=== PATIENT | male | born 1950 | race Caucasian/White ===

== ENCOUNTER 2020-08-25 11:29 | Emergency (ER) | payer MEDICARE, BC ==
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
[2020-08-25] MEDS ORDERED: Aluminum Hydroxide/Magnesium Hydroxide/Simethicone Susp 30 ML Cup PO ONE (12:59)
[2020-08-25 14:41] VITALS: BP 128/69; PULSE 76
[2020-08-25] MEDS ORDERED: HYDROmorphone 1 MG/ML Syringe IM ONE (14:46)
[2020-08-25] MEDS ORDERED: Ondansetron 4 MG Tab.DIS PO ONE (15:25)
[2020-08-25] MEDS ORDERED: Ondansetron 4 MG Tab.DIS ONE (15:27)
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
== END 2020-08-25 15:38 | disposition home or self-care (01) ==
LOC: JP.ED 11:29
DX: S22.42XA Multiple fractures of ribs, left side, initial encounter for closed fracture (principal); S00.31XA Abrasion of nose, initial encounter; W55.22XA Struck by cow, initial encounter
CPT/HCPCS: 36415; 71250; 74176; 80053; 85025; 96372; 99284; A9270; J1170

== ENCOUNTER 2020-10-05 06:30 | Day surgery (SDC) | payer MEDICARE, BC ==
[2020-10-05] MEDS ORDERED: Sodium Chloride 0.9% 1,000 ML IV SCH (07:00)
[2020-10-05] MEDS ORDERED: fentaNYL 100 MCG/2 ML SDV ONE (07:30)
[2020-10-05] MEDS ORDERED: Propofol 200 MG/20 ML SDV ONE (07:30)
[2020-10-05] MEDS ORDERED: Midazolam 1 MG/ML 2 ML SDV ONE (07:30)
[2020-10-05] MEDS ORDERED: Ondansetron 4 MG/2 ML SDV ONE (07:35)
[2020-10-05] MEDS ORDERED: Dexamethasone 4 MG/ML SDV ONE (07:35)
[2020-10-05 08:45] VITALS: BP 120/77; PULSE 62
--- NOTE | 2020-10-05 14:13 | OR ---
DATE OF PROCEDURE: 10/05/2020 SURGEON: Germán Encarnacion MD PROCEDURE PERFORMED: Colonoscopy. FINDINGS: 1. Diverticulosis. 2. Incomplete colonoscopy due to a large amount of solid stool. 3. Poor colon prep. COMPLICATIONS: None. ACTIVITY MANAGER: None. ANESTHETIC: MAC. PREOPERATIVE DIAGNOSIS: Screening colonoscopy. POSTOPERATIVE DIAGNOSIS: Screening colonoscopy. RISKS: Risks, benefits, alternatives, and limitations including, but not limited to infection, bleeding, perforation, false positives, and false negatives were explained to the patient who wished to proceed. PROCEDURE IN DETAIL: The patient was placed in the left lateral decubitus position. Digital rectal exam was performed without significant abnormality. The scope was introduced and advanced atraumatically to the appendiceal orifice. The scope was brought back, but the patient had a large amount of solid stool throughout the entire colon. The luminal surface exam was less than 60%. Suction irrigation techniques were used, but unable to improve on the percentage. The scope was brought back, and the procedure was terminated. The patient will be scheduled for a second colonoscopy due to poor colon prep. Germán Encarnacion MD /[id number]
== END 2020-10-05 09:15 | disposition home or self-care (01) ==
LOC: JP.SDS 06:30
PROVIDERS: ATTEND Surgery
DX: Z12.11 Encounter for screening for malignant neoplasm of colon (principal); K57.30 Diverticulosis of large intestine without perforation or abscess without bleeding
CPT/HCPCS: G0121; J1100; J2405; J2704; J3010; J7030; J2250

== ENCOUNTER 2020-10-15 08:22 | Day surgery (SDC) | payer MEDICARE, BC ==
[~2020-10-15 08:22] MED LIST: Midazolam 1 MG/ML 2 ML SDV ONE; Propofol 200 MG/20 ML SDV ONE; fentaNYL 100 MCG/2 ML SDV ONE
[2020-10-15] MEDS ORDERED: Sodium Chloride 0.9% 1,000 ML IV SCH (09:30)
[2020-10-15] MEDS ORDERED: Ondansetron 4 MG/2 ML SDV ONE (10:28)
[2020-10-15 11:37] VITALS: BP 110/59; PULSE 68
--- NOTE | 2020-10-18 09:05 | OR ---
DATE OF PROCEDURE: 10/15/2020 SURGEON: Germán Encarnacion MD PROCEDURE: Colonoscopy. FINDINGS: Transverse colon polyp, approximately 5 mm, completely removed using cold biopsy forceps. COMPLICATIONS: None. NAVAL SCIENCE TEACHER: None. ANESTHESIA: MAC. PREOPERATIVE DIAGNOSIS: Screening colonoscopy. POSTOPERATIVE DIAGNOSIS: Screening colonoscopy. RISKS: Risks, benefits, alternatives, and limitations including, but not limited to infection, bleeding, perforation, false positives, false negatives were all explained to the patient and wished to proceed. PROCEDURE IN DETAIL: The patient was placed in left lateral decubitus position. Digital rectal exam was performed without abnormality. Scope was introduced and advanced atraumatically to the ileocecal valve. The scope was brought back to the ascending, transverse, descending colon and retroflexed. No evidence of old or new blood. No masses. No colitis. No abnormalities on retroflexion. The prep was poor with solid and liquid stool remaining. Approximately 80% to 85% luminal surface could be seen. No abnormalities on retroflexion. Of note, this is the repeat colonoscopy with a longer prep on the second colonoscopy. It is unclear if the patient will do any better with a repeat colonoscopy, possibly due to compliance issues. Germán Encarnacion MD /[id number]
== END 2020-10-15 11:42 | disposition home or self-care (01) ==
LOC: JP.SDS 08:22
PROVIDERS: ATTEND Surgery
DX: Z12.11 Encounter for screening for malignant neoplasm of colon (principal); D12.2 Benign neoplasm of ascending colon; Z88.5 Allergy status to narcotic agent
CPT/HCPCS: 45380; J2250; J2405; J2704; J3010; J7030; 88305

== ENCOUNTER 2021-09-14 13:23 | Emergency (ER) | payer MEDICARE, BC ==
[2021-09-14 14:20] VITALS: BP 130/69; PULSE 82
== END 2021-09-14 15:06 | disposition home or self-care (01) ==
LOC: JP.ED 13:23
DX: I82.431 Acute embolism and thrombosis of right popliteal vein (principal); Z88.5 Allergy status to narcotic agent; Z79.01 Long term (current) use of anticoagulants; Z79.899 Other long term (current) drug therapy; Z86.16 Personal history of COVID-19
CPT/HCPCS: 93971-26; 93971-RT; 99283

== ENCOUNTER 2022-08-29 22:16 | Emergency (ER) | payer MEDICARE, BC ==
[2022-08-29 22:41] VITALS: BP 131/68; PULSE 76
[2022-08-30 00:46] LABS: BASOPHILS ABSOLUTE AUTO 0.02 K/uL (0.00-0.10); BASOPHILS PERCENT AUTO 0.3 % (0.1-1.3); EOSINOPHILS ABSOLUTE AUTO 0.12 K/uL (0.00-0.40); HEMATOCRIT 41.9 % (38.4-49.7); IMMATURE GRAN PERCENT AUTO 0.3 % (0.0-0.7); LYMPHOCYTES ABSOLUTE AUTO 1.76 K/uL (0.8-3.3); LYMPHOCYTES PERCENT AUTO 29.6 % (11.4-47.7); MEAN CORPUSCULAR HEMOGLOBIN 30.8 pg (31.6-35.5); MEAN CORPUSCULAR HGB CONC 33.4 g/dL (31.6-35.5); MEAN CORPUSCULAR VOLUME 92.1 fL (81.4-99.0); MONOCYTES ABSOLUTE AUTO 0.71 K/uL (0.20-0.90); MONOCYTES PERCENT AUTO 11.9 % (3.3-12.6); NEUTROPHILS ABSOLUTE AUTO 3.32 K/uL (1.0-7.6); NEUTROPHILS PERCENT AUTO 55.9 % (40.0-78.1); PLATELET COUNT,PLT 231 K/uL (130-375); RED BLOOD CELL COUNT 4.55 M/uL (4.14-5.76)
[2022-08-30 00:47] LABS: IMMATURE GRAN ABSOLUTE AUTO 0.02 K/uL (0.00-0.23)
[2022-08-30 01:00] LABS: EST CRCL DRUG DOSING (CG) 73.21 mL/min; POTASSIUM,K 3.9 mmol/L (3.6-5.2)
[2022-08-30 01:07] LABS: INR 2.9; PROTHROMBIN TIME 27.9 sec (9.2-10.6)
== END 2022-08-30 01:59 | disposition home or self-care (01) ==
LOC: JP.ED 22:16
DX: M79.81 Nontraumatic hematoma of soft tissue (principal); Z86.16 Personal history of COVID-19; Z88.5 Allergy status to narcotic agent; Z79.899 Other long term (current) drug therapy
CPT/HCPCS: 36415; 80048; 85025; 85610; 99283

== ENCOUNTER 2024-05-22 08:52 | Day surgery (SDC) | payer MEDICARE, BC ==
[2024-05-22] MEDS: Lactated Ringers 1,000 ML IV SCH (09:41)
[2024-05-22] MEDS ORDERED: Propofol 200 MG/20 ML SDV ONE (10:38)
[2024-05-22] MEDS ORDERED: fentaNYL 100 MCG/2 ML SDV ONE (10:38)
[2024-05-22 13:52] VITALS: BP 132/68; PULSE 60
== END 2024-05-22 13:50 | disposition home or self-care (01) ==
LOC: JP.SDS 08:52
PROVIDERS: ATTEND Surgery
DX: Z12.11 Encounter for screening for malignant neoplasm of colon (principal); D12.5 Benign neoplasm of sigmoid colon; K63.5 Polyp of colon; K57.30 Diverticulosis of large intestine without perforation or abscess without bleeding; E78.5 Hyperlipidemia, unspecified; E66.9 Obesity, unspecified; Z88.5 Allergy status to narcotic agent
CPT/HCPCS: 00811; 45380; 45385; 88305; J2704; J3010; J7120